=== PATIENT | male | born 1955 | race Caucasian/White ===

== ENCOUNTER 2020-06-25 12:33 | Emergency (ER) | payer MEDICARE, OTHER ==
--- NOTE | 2020-06-25 12:52 | EDM.PDOC ---
ED HPI GENERAL MEDICAL PROBLEM - General Chief Complaint: General Stated Complaint: FALL Time Seen by Provider: 06/25/20 13:00 Source of Information: Reports: Patient, EMS History Limitations: Reports: Altered Mental Status - History of Present Illness INITIAL COMMENTS - FREE TEXT/NARRATIVE: patient arrives via EMS after a fall off his trailer roof. His brother was on the roof with him, heared him yell, then saw him sliding off. When he got to him, the patient was on his right side with some bleeding on the right side of his head. Patient has been confused and repetitive since the fall. C/O pain to RUE, cocyxx, and back of head. Family is unsure what medications the patient currently takes or if he is on blood thinners. Unknown LOC. No seizures, vomiting, ETOH, battles signs, or raccoon eyes. GCS on arrival 15. 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 EMS Report, Spinal Immobilization - Related Data Allergies Allergy/AdvReac Type Severity Reaction Status Date / Time No Known Allergies Allergy Verified 06/25/20 13:44 Home Meds: Home Meds NK [No Known Home Meds] 06/25/20 [History] ED ROS GENERAL - Review of Systems Review Of Systems: See Below Constitutional: Reports: No Symptoms HEENT: Reports: No Symptoms Respiratory: Reports: No Symptoms Cardiovascular: Reports: No Symptoms Endocrine: Reports: No Symptoms GI/Abdominal: Reports: No Symptoms : Reports: No Symptoms Musculoskeletal: Reports: Back Pain, Other (head pain) Skin: Reports: Wound Neurological: Reports: Confusion Psychiatric: Reports: No Symptoms. Denies: Hallucinations Hematologic/Lymphatic: Reports: No Symptoms ED EXAM, GENERAL - Physical Exam Exam: See Below Exam Limited By: Other (c-collar/backboard) General Appearance: Alert, Mild Distress Eye Exam: Bilateral Eye: PERRL Ears: Normal External Exam, Normal Canal, Normal TMs Ear Exam: Bilateral Ear: TM normal Nose: Normal Inspection, Normal Mucosa Throat/Mouth: Normal Inspection, Normal Lips, Normal Teeth, Normal Oropharynx, Normal Voice Head: Other (pain in the back of the head) Neck: Non-Tender (c-collar in place) Respiratory/Chest: No Respiratory Distress, Lungs Clear, Chest Non-Tender Cardiovascular: Normal Peripheral Pulses, Regular Rate, Rhythm, No Edema, No JVD Peripheral Pulses: 3+: Radial (L), Radial (R), Femoral (L), Femoral (R), Dorsalis Pedis (L), Dorsalis Pedis (R) GI/Abdominal: Normal Bowel Sounds, Soft, Non-Tender, No Distention Rectal (Males) Exam: Normal Exam Back Exam: Normal Inspection, Full Range of Motion, Vertebral Tenderness (cocyxx tenderness ). No: CVA Tenderness (R), CVA Tenderness (L) Extremities: Normal Inspection, Normal Range of Motion, Normal Capillary Refill Neurological: Alert, CN II-XII Intact, Normal Reflexes, No Motor/Sensory Deficits, Memory Loss Recent Events. No: Sensory/Motor Deficit Psychiatric: Normal Affect, Normal Mood Skin Exam: Warm, Dry, Wound/Incision (7cm laceration to right occipital) Lymphatic: No Adenopathy Course - Vital Signs Last Recorded V/S: Last Vital Signs Temp 98 F 06/25/20 13:05 Pulse 61 06/25/20 13:05 Resp 20 06/25/20 13:05 BP 129/79 06/25/20 13:05 Pulse Ox 97 06/25/20 13:05 - Orders/Labs/Meds Orders: Active Orders 24 hr Category Date Time Status EKG Documentation Completion [RC] ASDIRECTED Care 06/25/20 13:09 Active Vaccines to be Administered [RC] PER UNIT ROUTINE Care 06/25/20 14:08 Active Cervical Spine wo Cont [CT] Stat Exams 06/25/20 12:39 Taken Chest Abdomen Pelvis wo Cont [CT] Stat Exams 06/25/20 13:08 Taken Head wo Cont [CT] Stat Exams 06/25/20 12:39 Taken UA RFX EVELYN AND CULT IF INDIC [URIN] Stat Lab 06/25/20 13:38 Ordered fentaNYL [Sublimaze] Med 06/25/20 13:37 Active 25 mcg IVPUSH Q5M PRN Medication Orders Fentanyl (Sublimaze) 25 mcg IVPUSH Q5M PRN PRN Reason: Pain Last Admin: 06/25/20 13:47 Dose: 25 mcg Documented by: ANA Labs: Laboratory Tests 06/25/20 06/25/20 Range/Units 13:00 13:05 WBC 6.6 (4.0-11.0) K/uL RBC 4.43 L (4.50-6.50) M/uL Hgb 13.4 (13.0-18.0) g/dL Hct 39.0 L (40.0-54.0) % MCV 88 (76-96) fL MCH 30.2 (27.0-32.0) pg MCHC 34.4 (31.0-35.0) g/dL RDW 12.8 (11.0-16.0) % Plt Count 183 (150-400) K/uL MPV 9.9 (6.0-10.0) fL Neut % (Auto) 45.4 (45.0-70.0) % Lymph % (Auto) 40.5 H (20.0-40.0) % Hitchcock % (Auto) 12.5 H (3.0-10.0) % Eos % (Auto) 1.1 (1.0-5.0) % Baso % (Auto) 0.5 (0.0-0.5) % Neut # (Auto) 2.98 (2.00-7.50) K/uL Lymph # (Auto) 2.66 (1.50-4.00) K/uL Hitchcock # (Auto) 0.82 H (0.20-0.80) K/uL Eos # (Auto) 0.07 (0.04-0.40) K/uL Baso # (Auto) 0.03 (0.02-0.10) K/uL Sodium 146 H (136-145) mmol/L Potassium 3.7 (3.5-5.1) mmol/L Chloride 98 (98-107) mmol/L Carbon Dioxide 25.4 (21.0-32.0) mmol/L Anion Gap 26.3 H (5.0-15.0) mmol/L BUN 18 (8-26) mg/dL Creatinine 1.23 (0.70-1.30) mg/dL Est Cr Clr Drug Dosing TNP Estimated GFR (MDRD) 59 L (>60) MLS/MIN BUN/Creatinine Ratio 14.6 (6-25) Glucose 122 H (74-100) mg/dL Calcium 8.6 (8.5-10.1) mg/dL Total Bilirubin 0.7 (0.0-1.0) mg/dL AST 27 (15-37) U/L ALT 27 (12-78) U/L Alkaline Phosphatase 49 (46-116) U/L Total Protein 6.6 (6.4-8.2) g/dL Albumin 3.5 (3.4-5.0) g/dL Globulin 3.1 (2.2-4.2) g/dL Albumin/Globulin Ratio 1.1 (0.8-2.0) Meds: Medications Generic Name Dose Route Start Last Admin Trade Name Freq PRN Reason Stop Dose Admin Fentanyl 25 mcg 06/25/20 13:37 06/25/20 13:47 Sublimaze IVPUSH 25 mcg Q5M PRN Administration Pain Discontinued Medications Generic Name Dose Route Start Last Admin Trade Name Freq PRN Reason Stop Dose Admin Ondansetron HCl 8 mg 06/25/20 13:37 06/25/20 13:42 Zofran IVPUSH 06/25/20 13:38 8 mg ONETIME ONE Administration Tetanus/Diphtheria Toxoids 0.5 ml 06/25/20 14:08 06/25/20 14:13 Tenivac IM 06/25/20 14:09 0.5 ml .ONCE ONE Administration Departure - Departure Time of Disposition: 14:50 Disposition: DC[facility] to [facility] 05 Condition: Good Clinical Impression: Coccyx pain, Muscle strain Laceration of head Qualifiers: Encounter type: initial encounter Location of open wound of head: other part of head Foreign body presence: without foreign body Qualified Code(s): S01.81XA - Laceration without foreign body of other part of head, initial encounter Head injury Qualifiers: Encounter type: initial encounter Qualified Code(s): S09.90XA - Unspecified injury of head, initial encounter Concussion Qualifiers: Encounter type: initial encounter Loss of consciousness presence/duration: without LOC Qualified Code(s): S06.0X0A - Concussion without loss of consciousness, initial encounter - Discharge Information *PRESCRIPTION DRUG MONITORING PROGRAM REVIEWED*: Not Applicable *COPY OF PRESCRIPTION DRUG MONITORING REPORT IN PATIENT SHARON: Not Applicable Instructions: Laceration Care, Adult, Tailbone Injury, [id number], Sutures, Amri, or Adhesive Wound Closure, [id number], Tailbone Injury, Concussion, Adult, [id number] Forms: ED Department Discharge Additional Instructions: Have mari removed in 7-10 days. Keep area clean and dry. You may shower, just no soaking of the head. Make sure someone stays with you for at least the next 24 hours. Take the norco (remember each norco tablet contains 325mg of tylenol, do not exceed 4000mg tylenol in 24 hours)as needed for pain, and the zofran for nausea. Return to ED for any increased or new concerning symptoms including repetitive, persistent vomiting, increased confusion, visual changes. Rest your body and brain. Sepsis Event Note (ED) - Focused Exam Vital Signs: Vital Signs Temp Pulse Resp BP Pulse Ox 06/25/20 13:05 98 F 61 20 129/79 97 ED Communication - Discussed Case With (1) Discussed Case With (1): Radiologist (She finds no dislocation on S3, but there may be a subtle fracture normal variant. Without a dislocation we will treat symptoms without additional radiology studies.) - My Orders Last 24 Hours: My Active Orders 06/25/20 12:39 Cervical Spine wo Cont [CT] Stat Head wo Cont [CT] Stat 06/25/20 13:08 Chest Abdomen Pelvis wo Cont [CT] Stat 06/25/20 13:09 EKG Documentation Completion [RC] ASDIRECTED 06/25/20 13:37 fentaNYL [Sublimaze] 25 mcg IVPUSH Q5M PRN 06/25/20 13:38 UA RFX EVELYN AND CULT IF INDIC [URIN] Stat 06/25/20 14:08 Vaccines to be Administered [RC] PER UNIT ROUTINE - Assessment/Plan Last 24 Hours: My Active Orders 06/25/20 12:39 Cervical Spine wo Cont [CT] Stat Head wo Cont [CT] Stat 06/25/20 13:08 Chest Abdomen Pelvis wo Cont [CT] Stat 06/25/20 13:09 EKG Documentation Completion [RC] ASDIRECTED 06/25/20 13:37 fentaNYL [Sublimaze] 25 mcg IVPUSH Q5M PRN 06/25/20 13:38 UA RFX EVELYN AND CULT IF INDIC [URIN] Stat 06/25/20 14:08 Vaccines to be Administered [RC] PER UNIT ROUTINE
[2020-06-25] MEDS ORDERED: Acetaminophen/HYDROcodone 325-5 MG Tab ONE (13:30)
[2020-06-25] MEDS ORDERED: Ondansetron 4 MG Tab.DIS ONE (13:30)
[2020-06-25] MEDS ORDERED: fentaNYL 100 MCG/2 ML SDV IVPUSH PRN (13:37)
[2020-06-25] MEDS ORDERED: Ondansetron 4 MG/2 ML SDV IVPUSH ONE (13:37)
[2020-06-25] MEDS ORDERED: Diphtheria/Tetanus Toxoids,Adult (Td) 0.5 ML SDV IM ONE (14:08)
--- NOTE | 2020-06-26 12:26 | CT ---
DATE OF SERVICE: 06/25/2020 CLINICAL DATA: Trauma, fall. UNENHANCED BRAIN CT: No priors. There is mild atrophy. There are periventricular lucencies bilaterally consistent with small vessel ischemic change. No masses or mass effect. No intracranial hemorrhage. No evidence of acute or subacute infarct. No osseous abnormalities. No fractures. IMPRESSION: No acute intracranial abnormalities. [id number] [facility]
--- NOTE | 2020-06-26 12:31 | CT ---
DATE OF SERVICE: 06/25/2020 CLINICAL DATA: Trauma, fall. CERVICAL SPINE CT: Multislice axial acquisition from the base of the skull to T3 was performed. Axial images and sagittal and coronal reformations are reviewed. No priors. There is partial fusion of the C3 and C4 vertebrae. This is probably congenital. The vertebral bodies are of average height and in good alignment. No acute fracture or dislocation. There is degenerative disc disease throughout the cervical spine. There is facet joint hypertrophy throughout the cervical spine. There are degenerative changes involving the atlantoaxial articulation. The soft tissues are unremarkable. IMPRESSION: No acute abnormalities. [id number] [facility]
--- NOTE | 2020-06-26 12:40 | CT ---
DATE OF SERVICE: 06/25/2020 CLINICAL DATA: Trauma. UNENHANCED CHEST CT: Multislice axial acquisition was performed. No priors. There are atelectatic changes in the dependent portion of both lungs. The lungs are otherwise clear. No pneumothorax. No pleural effusions. The heart size is normal. There are mild coronary artery calcifications. The ascending aorta is mild prominent. It measures 3.9 cm in diameter. No hilar or mediastinal adenopathy. No displaced fractures. IMPRESSION: No acute abnormalities. UNENHANCED ABDOMEN AND PELVIC CT: No priors. The liver is normal size with homogeneous attenuation. No focal hepatic lesions. The gallbladder appears normal. No biliary duct dilatation. The spleen appears normal. The pancreas appears normal. The right and left adrenals appear normal. The right and left kidneys appear normal. No nephrocalcinosis or nephrolithiasis. No hydronephrosis or hydroureter. The bladder is fluid filled. It appears normal. The prostate is enlarged. There is a moderate amount of stool present throughout the colon. No evidence of appendicitis. No free air. No free fluid. No dilated loops of bowel. No adenopathy. No displaced fractures. There is slight anterolisthesis of L3 on L4. There is degenerative disc disease at multiple levels in the lumbar spine. There is a lucency through the posterior aspect of S3 which may represent at nondisplaced fracture. No other significant findings. [id number] [facility]
== END 2020-06-25 15:05 | disposition home or self-care (01) ==
LOC: LB.ED 12:33
DX: S06.0X0A Concussion without loss of consciousness, initial encounter (principal); S01.01XA Laceration without foreign body of scalp, initial encounter; S39.012A Strain of muscle, fascia and tendon of lower back, initial encounter; Z23 Encounter for immunization; W17.89XA Other fall from one level to another, initial encounter
CPT/HCPCS: 12002; 36415; 70450; 71250; 72125; 74176; 80053; 85025; 90471; 90714; 93005; 96374; 96375; 99285-25; A9270-GY; J2405; J3010

== ENCOUNTER 2023-11-03 14:12 | Emergency (ER) | payer MEDICARE ==
[2023-11-03] MEDS: Ketorolac 60 MG/2 ML SDV IM ONE (14:38)
== END 2023-11-03 15:06 | disposition home or self-care (01) ==
LOC: LB.ED 14:12
DX: M79.2 Neuralgia and neuritis, unspecified (principal)
CPT/HCPCS: 73502-LT; 96372; 99283; J1885